=== PATIENT | male | born 1960 | race Caucasian/White ===

== ENCOUNTER 2019-09-15 21:50 | Inpatient (IN) | payer OTHER ==
[~2019-09-15] VITALS: Ht 175.3 cm; Wt 67.1 kg
[2019-09-15 21:52] VITALS: BP 153/83
[2019-09-15 22:33] LABS: ABSOLUTE NEUTROPHILS 5.1 thou/uL (1.4-8.2); BASOPHILS 0.8 % (0.0-2.0); EOSINOPHILS 1.5 % (0.0-3.0); HEMATOCRIT 41.4 % (42.0-52.0); HEMOGLOBIN 13.8 gm/dL (14.0-18.0); LYMPHOCYTES 27.4 % (24.0-44.0); MCH 28.9 pg (26.0-34.0); MCHC 33.3 g/dL (28.0-37.0); MCV 86.7 fL (80.0-100.0); PLATELET COUNT 263 thou/uL (150-400); POLYS 60.3 % (36.0-66.0); RBC 4.78 mil/uL (4.50-6.00); RDW 13.8 % (10.5-14.5); WBC 8.5 thou/uL (4.0-11.0)
[2019-09-15 22:46] LABS: CALCIUM 8.7 mg/dL (8.5-10.1); CREATININE 0.8 mg/dL (0.7-1.3); MAGNESIUM 2.2 mg/dL (1.8-2.4); POTASSIUM 3.5 mmol/L (3.5-5.1)
[2019-09-15 23:33] VITALS: BP 153/83
[2019-09-16 00:19] LABS: URINE BILIRUBIN NEGATIVE (Negative); URINE BLOOD NEGATIVE (Negative); URINE CLARITY CLEAR; URINE COLOR YELLOW; URINE GLUCOSE-RANDOM* NEGATIVE (Negative); URINE KETONES NEGATIVE (Negative); URINE LEUKOCYTES-REFLEX NEGATIVE (Negative); URINE NITRITE-REFLEX NEGATIVE (Negative); URINE PROTEIN (DIPSTICK) NEGATIVE (Negative); URINE SPECIFIC GRAVITY <= 1.005 (1.005-1.035); URINE UROBILINOGEN 0.2 E.U./dl (0.2-1.0)
[2019-09-16] MEDS ORDERED: FLOMAX0.4 MG PO (00:26)
[2019-09-16] MEDS ORDERED: DESYREL150 MG PO (00:26)
[2019-09-16] MEDS ORDERED: COLACE100 MG PO (00:27)
[2019-09-16] MEDS ORDERED: DOXYCYCLINE PO (00:27)
[2019-09-16] MEDS ORDERED: ZANTAC 150MG T150 M1 PO (00:28)
[2019-09-16] MEDS ORDERED: GLUCOPHAGE1000 MG PO (00:28)
[2019-09-16] MEDS ORDERED: NEURONTIN 300M300 M2 PO (00:28)
[2019-09-16] MEDS ORDERED: WIXELA 250-501 EACH (00:30)
[2019-09-16] MEDS ORDERED: MASOPHEN500 MG PO (00:30)
[2019-09-16] MEDS ORDERED: NYSTATIN1 EA10 TOP (00:44)
[2019-09-16] MEDS ORDERED: PROAIR HFA8.5 GM INH (00:45)
[2019-09-16] MEDS ORDERED: CALMOSEPTINE O3.5 GM (00:46)
[2019-09-16] MEDS ORDERED: CLEAR EYES NATU15 ML (00:46)
[2019-09-16] MEDS ORDERED: FLONASE 0.05%50 MCG NARES (00:47)
[2019-09-16] MEDS ORDERED: VENTOLIN HFA 1818 GM INH (00:47)
[2019-09-16] MEDS ORDERED: HYDROXYZINE PAM25 M1 PO (00:48)
[2019-09-16] MEDS ORDERED: MUCINEX DM PO (00:49)
[2019-09-16] MEDS ORDERED: LISINOPRIL PO (00:49)
[2019-09-16] MEDS ORDERED: PALIPERIDONE ER6 MG PO (00:50)
[2019-09-16] MEDS ORDERED: PREDNISONE 5 MG5 M1 PO (00:51)
[2019-09-16] MEDS ORDERED: SERTRALINE HCL100 MG PO (00:52)
[2019-09-16] MEDS ORDERED: QUETIAPINE FUMA50 MG PO (00:52)
[2019-09-16] MEDS ORDERED: SEROQUEL 50 MG50 M1 PO (00:52)
[2019-09-16] MEDS ORDERED: SIMVASTATIN80 MG PO (00:54)
[2019-09-16 02:25] VITALS: BP 163/92
[2019-09-16 03:36] VITALS: BP 149/75
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
--- NOTE | 2019-09-16 04:03 | NUR ---
PT REFUSED TO ALLOW ANY SCD DEVICE ON HIS LEGS. NOTIFIED VERIFYING SPECIALIST THAT HE NEEDS A LOVENOX OR HEPARIN INSTEAD. NO FURTHER ORDERS AT THIS TIME. VERIFYING SPECIALIST WILL LOOK INTO IT. IV FLUIDS INFUSING ORDERED.
[2019-09-16 07:41] VITALS: BP 149/90
--- NOTE | 2019-09-16 13:50 | NUR ---
Assumed pt care at 7am.Pt in bed alert and oriented but sometimes agitated and restless.Assessment completed.vss.Pulled piv out early this shift around 8am and was replaced by iv team around 11am.At 1335,medical laboratory technical officer came to draw blood and found piv on the floor pulled by pt.Dr Steward notified,order noted.Iv team will replace iv later today.Will continue to monitor.
[2019-09-16 13:53] LABS: HEMOGLOBIN 14.3 gm/dL (14.0-18.0); MCH 29.1 pg (26.0-34.0); MCHC 33.3 g/dL (28.0-37.0); MCV 87.3 fL (80.0-100.0); RBC 4.93 mil/uL (4.50-6.00); RDW 14.2 % (10.5-14.5); WBC 8.1 thou/uL (4.0-11.0)
[2019-09-16 14:02] LABS: CALCIUM 8.7 mg/dL (8.5-10.1); CREATININE 0.8 mg/dL (0.7-1.3); POTASSIUM 3.7 mmol/L (3.5-5.1)
[2019-09-16 15:23] VITALS: BP 147/88
[2019-09-16 19:19] VITALS: BP 146/80
--- NOTE | 2019-09-16 21:58 | NUR ---
PT IN ISOLATION FOR COVID. PT ALERT X 4. PT CONTINUOUSLY USING CALL LIGHT FOR BEVERAGES, FOOD, COFFEE OR HEADACHE. PT NOT ABLE TO BE VERBALLY REDIRECTED. PT HITTING CALL LIGHT REPEATEDLY EVEN WHEN STAFF IS IN THE ROOM. PROVIDER MANAGER CONTINUOUS IMPROVEMENT NOTIFIED OF BEHAVIOR AND CONTINUED HEADACHE AFTER TYELENOL. PRN ATIVAN PROVIDED. PT CONVERSATIONS HAVE BEEN FOCUSED ON WOMEN CAUSING HIM HEADACHES AND TAKING HIS MONEY, SAYING MY FINGER HURTS AND SHOWING MIDDLE FINGER, SAYING HIS NAME IS MIRI AND SINGING A SONG. PT IS NAKED IN BED WITH KNITTED SCARF ON STATED IT WAS FROM HIS FIRST . PT HAS BOOKS, KLEENEX, PACKAGES STACKED IN HIS BED THAT HE IS ALSO LAYING IN. INTERMITTENT DRY COUGH, LUNGS DIMINISHED, BS DECREASE . PT USING URINAL. COMPLIANT WITH MEDS. BLUNTED AFFECT GOOD EYE CONTACT.
--- NOTE | 2019-09-16 22:49 | NUR ---
CALLED SECURITY TO TALK WITH PT ABOUT ABUSING CALL LIGHT SYSTEM AND CRITICAL CARE CNS NOTIFIED WELL. SECURITY CAME TO TALK WITH PT. PROVIDER CALLED AND UPDATED. ONE TIME DOSE SEROQUEL ORDERED. PT OBSERVED TO BE LESS RESTLESS AND SPEECH CALM WHEN TALKING WITH MALE SECURITY. DISCUSSED PTS REQUEST FOR COFFEE WITH PROVIDER, WILL PROVIDE DECAFFINATED BEVERAGES SINCE PT ALREADY STIMULATED/RESTLESS.
--- NOTE | 2019-09-16 23:10 | NUR ---
PT CONVERSATION NOTED TO BE SLOWER. PT REPORTED THAT HE IS STARTING TO BECOME TIRED. THANKED STAFF FOR COFFEE, IT WAS DECAF. PT COMPLIANT WITH ONE TIME SEROQUEL.
--- NOTE | 2019-09-17 03:31 | NUR ---
PT HAS SLEPT THROUGHOUT THE NIGHT SINCE RECEIVING SEROQUEL.
[2019-09-17 05:10] VITALS: BP 136/82
--- NOTE | 2019-09-17 05:22 | NUR ---
PT AWAKE WALKING AROUND IN ROOM WITH CLOTHES ON AND BLANKET. PT STACKING BOOKS AND KLEENEX AND WIPES. PT DENIES HEADACHE.
[2019-09-17 06:29] LABS: ABSOLUTE NEUTROPHILS 5.2 thou/uL (1.4-8.2); BASOPHILS 0.6 % (0.0-2.0); EOSINOPHILS 3.1 % (0.0-3.0); HEMATOCRIT 42.9 % (42.0-52.0); HEMOGLOBIN 14.4 gm/dL (14.0-18.0); LYMPHOCYTES 21.8 % (24.0-44.0); MCH 29.3 pg (26.0-34.0); MCHC 33.7 g/dL (28.0-37.0); MCV 87.2 fL (80.0-100.0); MONOCYTES 10.9 % (1.0-8.0); PLATELET COUNT 268 thou/uL (150-400); POLYS 63.6 % (36.0-66.0); RBC 4.92 mil/uL (4.50-6.00); RDW 14.2 % (10.5-14.5); WBC 8.1 thou/uL (4.0-11.0)
[2019-09-17 06:42] LABS: CALCIUM 8.9 mg/dL (8.5-10.1); CREATININE 0.9 mg/dL (0.7-1.3); POTASSIUM 3.8 mmol/L (3.5-5.1)
[2019-09-17 07:59] VITALS: BP 144/87
--- NOTE | 2019-09-17 11:17 | NUR ---
Assumed pt care at 7am.Pt in bed half naked resting.Rn encouraged covering with hospital gown before assessment but pt refused and said he was hot. Assessment completed.vss.pt ate breakfast and took all po meds scheduled for this am including tylenol for headache.Dr Steward here,order noted.New piv placed by iv team later this am and zosyn ivpb was given.Pt was restless and agitated getting out of bed and removing hospital gown after replacing three times.Haldol ivp given.Will continue to monitor.
[2019-09-17 15:21] VITALS: BP 111/71
[2019-09-17 19:27] VITALS: BP 138/90
--- NOTE | 2019-09-17 20:46 | NUR ---
PT RESTLESS AND WALKING WTIH STEADY GAIT IN ROOOM NAKED WITH BLANKET WRAPPED AROUND HIM. PT USING URINAL TO URINATE, WATER ALL OVER BATHROOM FLOOR INCLUDING PAPER SACK BY TOILET. PT HAS ALL ROOM ITEMS BOOKS, WIPES ETC STACKED ON BED. PT REQUESTING SODA AND COFFEE, DECAF PRODUCTS PROVIDED. NO COUGH OBSERVED. PT COMPLIANT WITH FSBS REFUSED INSULIN. PT COMPLIANT WTIH HS MEDS. PT NOTIFIED HE DOES NOT HAVE VIRUS AND NO LONGER IN ISOLATION. NEUROLOGICAL PHYSIOTHERAPIST AND PROVIDER NOTIFIED. PT REDIRECTED NOT USE INAPPROPRIATELY USE NURSES CALL LIGHT. PT VERBALIZED HE IS WANTING TO GO HOME TO HIS .
--- NOTE | 2019-09-17 20:59 | NUR ---
PT PULLED OUT PERIPHERAL IV, PER REPORT AND DR INSTRUCTIONS, WILL NOT REPLACE.
--- NOTE | 2019-09-17 21:12 | NUR ---
PT PACING IN ROOM TAKING OFF CLOTHES, REPEATEDLY HITTING NURSE CALL BUTTON EVEN AFTER REDIRECTION, GOING TO ROOM DOOR DEMANDING SODA AND COFFEE, DEMANDING MORE MEDICATION TOWARDS MORE THAN ONE NURSE. CALLING NURSE FREDDIECH. STATING HE HAS BEEN HERE FOR 4 DAYS AND HE IS READY TO GO HOME RIGHT NOW. IM PRN FOR AGITATION PROVIDED.
--- NOTE | 2019-09-17 22:28 | NUR ---
PT STATED HE DOES NOT HAVE A HEART OR LUNGS, THAT HE HAS 3 WIVES AND A GIRLFRIEND. CALLED NURSE A BITCH AND STATE HE WANTS TO LEAVE AND HE DOESNT WANT TO WAIT UNTIL THE AM.
--- NOTE | 2019-09-17 22:39 | NUR ---
Transfer report called. Room 434. Pt verbalized understanding, w/c has all belongings.
--- NOTE | 2019-09-18 01:13 | NUR ---
PT WAS TRANSFERRED TO THE UNIT FROM IN A STABLE CONDITION.PT ALERT AND CALM WHEN HE GOT TO THE UNIT.PT IS A COVID 19 RULE OUT.PT STILL WITH COUGH,NON PRODUCTIVE.PT RESTING IN BED AT THIS TIME.FALL PRECAUTIONS IN PLACE,CALL LIGHT WITHIN REACH.
[2019-09-18 01:14] VITALS: BP 118/59
[2019-09-18 03:10] VITALS: BP 136/73
[2019-09-18 07:33] VITALS: BP 139/79
[2019-09-18] MEDS ORDERED: MUCINEX600 MG PO (10:53)
[2019-09-18] MEDS ORDERED: AUGMENTIN 875-1 EACH PO (10:54)
--- NOTE | 2019-09-18 11:53 | NUR ---
Assumed pt care this am, pt is only alert to self and talks about having a then a girlfriend and a child where he came from. Pt is confused and very impulsive but steady on his feat when assisted. Constantly wants coffee and would get upset when told he has had too much and needs to wait. Pt is able to urinate using the urinal and is able to go to the toilet, though pt stated he is not able to urinate and have a bowel movement, as validated by the night nurse this is not true. Pt has been voiding, awaiting a bm.
--- NOTE | 2019-09-18 12:46 | NUR ---
PT ADMITTTED RELATED TO PNEUMONIA, AGRESSIVE BEHAVIOR, R/O COVID 19. CM REVIEWED CHART AND SPOKE WITH CARE TEAM. CM SPOKE WITH NURSE AND SHE INDICATED THAT PT IS CONFUSED. CM ATTEMPTED PC TO PT'S SISTER CHANDRA ESPINO NUMBER LISTED IS NON WORKING. CIARAN CALLED AND SPOKE WITH KRISTAChayo MACIAS AT [facility] WHICH IS LICSENSED A RESIDENTIAL CARE PLUS HOME. SHE INDICATED THAT PT HAD BEEN INDEPENDENT WITH GAIT AND ADLS FIELD AUDITOR. SHE STATED THAT PT'S BOTHER HAD TAKEN HIM OUT AT TIMES BUT THAT OTHERWISE PT HADN'T LEFT FACILITY. SHE STATED THAT PT HAD BURNT HIMSELF WITH [employer]IG[employer]TE FIELD AUDITOR AND HAD BEEN SENT TO [facility]. SHE INDICATED THAT THE NUMBER THEY HAVE ON FILE FOR SISTER IS CHANDRA ESPINO SISTER . CM CALLED AND [facility] ISN'T SET UP. SHE INDICATED THAT THEY WOULD HAVE TO ACCEPT PT BACK ONCE MEDICALLY STABLE BUT THAT THEY DON'T FEEL THEY ARE THE APPROPRIATE LEVEL OF CARE FOR PT DUE TO BEHAVIORS. CARE TEAM INDICATED THAT PT IS TO DC THIS DAY TO [facility]. KRISTA AT [facility] NOTIFIED.
== END 2019-09-18 16:02 | DRG 194 ==
LOC: ER 21:50 → EROBS 23:19 → 3W 09-16 01:59 → 4S 09-17 23:24
PROVIDERS: Emergency Medicine; Hospitalist; Nurse Practitioner Family; ADMIT Hospitalist
DX: J18.9 Pneumonia, unspecified organism (principal); F03.91 Unspecified dementia, unspecified severity, with behavioral disturbance; F03.90 Unspecified dementia, unspecified severity, without behavioral disturbance, psychotic disturbance, mood disturbance, and anxiety; I10 Essential (primary) hypertension; E78.5 Hyperlipidemia, unspecified; E11.9 Type 2 diabetes mellitus without complications; F32.9 Major depressive disorder, single episode, unspecified; K21.9 Gastro-esophageal reflux disease without esophagitis; N40.0 Benign prostatic hyperplasia without lower urinary tract symptoms; G47.00 Insomnia, unspecified; F17.210 Nicotine dependence, cigarettes, uncomplicated; F20.9 Schizophrenia, unspecified; Z79.899 Other long term (current) drug therapy; Z23 Encounter for immunization
CPT/HCPCS: 10080; 10195

== ENCOUNTER 2019-09-18 11:42 | Inpatient (IN) | payer OTHER ==
[~2019-09-18] VITALS: Ht 172.7 cm; Wt 65.2 kg
[~2019-09-18 11:42] MED LIST: AUGMENTIN 875-1 EACH PO; CALMOSEPTINE O3.5 GM; CLEAR EYES NATU15 ML; COLACE100 MG PO; DESYREL150 MG PO; DOXYCYCLINE PO; FLOMAX0.4 MG PO; FLONASE 0.05%50 MCG NARES; GLUCOPHAGE1000 MG PO; HYDROXYZINE PAM25 M1 PO; LISINOPRIL PO; MASOPHEN500 MG PO; MUCINEX DM PO; MUCINEX600 MG PO; NEURONTIN 300M300 M2 PO; NYSTATIN1 EA10 TOP; PALIPERIDONE ER6 MG PO; PREDNISONE 5 MG5 M1 PO; PROAIR HFA8.5 GM INH; QUETIAPINE FUMA50 MG PO; SEROQUEL 50 MG50 M1 PO; SERTRALINE HCL100 MG PO; SIMVASTATIN80 MG PO; VENTOLIN HFA 1818 GM INH; WIXELA 250-501 EACH; ZANTAC 150MG T150 M1 PO
[2019-09-18 16:18] VITALS: BP 132/83
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
[2019-09-18 19:48] VITALS: BP 138/83
--- NOTE | 2019-09-19 00:39 | NUR ---
Assumed care of patient this pm shift. Patient sitting in the mileu with peers. Patient is oriented to self and knows he is in a hospital facility. Patient denies si/hi. Patient states that he has an upset stomach. Patient states that he needs breathing treatments. Patient is forgetful. Patients assessment shows clear breath sounds, active bowel sounds, and s1 s2 heard with auscultation. Patient is not showing any signs of aggressive behaviors at this time. We will continue to monitor.
--- NOTE | 2019-09-19 06:00 | NUR ---
Patient is very irritable and called the staff development manager a "stupid nigger" when RN explained to patient that he is needing pain medicine. Patient stated that his testicles hurt. When asked how long, patient stated since he was a child. RN stated to patient that the doctor orders medications, not the nurse. Patient stated that "you take orders from me, not no fucking doctor." RN discouraged this type of verbal interaction and explained that this is not the way to have positive interactions. We will continue to monitor.
--- NOTE | 2019-09-19 09:24 | NUR ---
Assess due RD consult received for diabetes. Admitted from medical floor to [facility], aggressive behaviors, dementia. Hx DM. BG are in excellent control and on carb control diet order. Had 2 wts 8 lb difference in 2 days. Intake 95-100% meals so far. Continue to follow wts 1x weekly and further intake trends. Otherwise would consider low nutrition risk.
[2019-09-19 09:28] VITALS: BP 135/91
--- NOTE | 2019-09-19 10:14 | NUR ---
PATIENT NOTED WITH NO SHIRT ON. FIRMWARE ARCHITECT ASKS PTIENT TO PUT SHIRT ON AND PT STATES HIS WAS DIRTY. CLEAN SHIRT GIVEN AND PATIENT GOES TO ROOM AND PUTS SHIRT AND SWEATER ON.
--- NOTE | 2019-09-19 10:21 | NUR ---
Assumed pt care at 0700. Pt walking around unit, stating, "I need to go home to my and baby." Pt sat in dayroom for meals. Was given scheduled meals and tolerated well, without difficulty. Pt continues to take off shirt while sitting in dayroom and has to be redirected frequently. Pt reported pain in groin area of 6/10 and states, "I've had it since I was a kid." Pt given PRN Tylenol with minimal relief. Pt continues to be rude and disrespectful to staff, calling staff "whores" and "stupid". Pt has been easily redirected but continues with rude behaviors. Will continue to monitor.
--- NOTE | 2019-09-19 11:51 | NUR ---
MAURILIO contacted [facility] and spoke with Ana Lilia (Admin. Assist) who said pt has been sent out now 3 times to a hospital in the month of August; twice to [facility] and once to [facility]. He was transferred to [facility] from [facility]. She said he has lived with them since 11/2018 and lived at another facility in [facility] for 7 years. She said he recently has been threatening residents and staff that he would kill them. He is also experiencing delusions and auditory/visual hallucinations. She said his sister Matilda is DPOA and she will fax that document to sr. social media & mobile manager. She gave her sisters number of [phone]. MAURILIO contacted Matilda. No answer. zakia rochag. MAURILIO team will continue to follow pt during his stay on the unit.
--- NOTE | 2019-09-19 14:49 | NUR ---
1400 ASSUMED CARE OF PATIENT. MEDICATION GIVEN WHOLE WITHOUT DIFFICULTY. PATIENT CONTINUES TO WALK AROUND WITH BLANKETS DRAPPED AROUND HIM. PATIENT IS COOPERATIVE AT THIS TIME. WILL CONTINUE TO OBSERVE
--- NOTE | 2019-09-19 15:29 | NUR ---
PATIENT C/O SOB THEN RETURNS TO DAYROOM AND CONTINUES TO TALK TO SELF. NO DISTRESS NOTED. NURSE ANESTHETIST ASKS PATIENT TO GO TO ROOM AND PATIENT FOLLOWS. LUNG SOUNDS DIMINISHED WITH WHEEZES NOTED. PATIENT NOT STRUGLING. AEROSOL TX SCHEDULED FOR 5PM, WILL CONTINUE TO OBSERVE. AFTER OINTMENT APPLIED TO OPEN AREAS OF ANKLE AND HANDS, PATIENT LEAVES ROOM AND BACK TO DAYROOM. DENIES NEEDS AT THIS TIME.
--- NOTE | 2019-09-19 17:07 | NUR ---
SW completed a check in instead of group with pt's due to COVID-19 guidelines Pt wanted SW to paint his nails. SW assisted pt in proper handwashing techniques, and then sat at a table with him and helped him paint his nails. He laughed a lot with SW. He said when he was younger he got his fingers painted a lot. SW attempted to encourage him to sit at the table for an additional 5 min. but he was not able to complete SW request as he wanted to wander.
--- NOTE | 2019-09-19 17:30 | NUR ---
PATIENT STUB MIDDLE TOE TO RIGHT FOOT. PATIENT STATES "I THINK ITS BROKEN". PATIENT AMBULATING WITHOUT LIMPING. SLIGHT BRUISING NOTED. WILL CONTINUE TO OBSERVE PATIENT. DENIES OTHER NEEDS AT THIS TIME. PATIENT CALM SITTING AT TABLE WATCHING TV.
--- NOTE | 2019-09-19 17:35 | NUR ---
PT. HAS BEEN IN THE DINING ROOM SEVERAL TIMES TODAY DISROBING. HE WAS TOLD TO PUT HIS CLOTHES ON OR HE WOULD HAVE TO BE IN HIS ROOM. HE DID SO, THE TOOK SHIRT OFF AGAIN. AGAIN HE WAS ASKED TO GO TO HIS ROOM AND DRESS HIMSELF. HE DID SO AGAIN. AT SUPPER HE GRABBED HIS FOOD AND WAS WALKING AROUND WITH IT. HE WAS TOLD TO SIT DOWN TO EAT. HE RAISED HIS MIDDLE FINGER AT THIS RN. HE DID, HOWEVER, DRESS HIMSELF.
[2019-09-19 19:34] VITALS: BP 106/60
[2019-09-19 22:00] VITALS: BP 106/60
--- NOTE | 2019-09-19 23:38 | NUR ---
Assumed care of patient this pm shift. Patient irritable and rude. Patient states that he is going home. Patient requested muscle relaxers. Patients affect blunted. Patient rambles when he speaks. Patient is not showing any aggressive behaviors at this time. Patients assessment shows wheezes, bowel sounds present, s1 s2 heard with auscultation. Patient is continent of bowel and bladder. Patient takes medications whole. Patient could be med seeking. We will continue to monitor.
[2019-09-20 09:25] VITALS: BP 133/78
--- NOTE | 2019-09-20 12:45 | NUR ---
MAURILIO spoke with Matilda Mckeon who gave SW hx on pt. She confirmed what pt's nursing staff said and that is pt's behaviors began approx 3 months ago. She said he is not normally aggressive verbally, and does not attempt to hurt people. SW asked if pt has ever been diagnosed with dementia. Matilda said his former residential called [facility] used the term "Alzheimer's" but he has not been officially tested for such. In tx team it was discussed that pt will undergo a neuropysch exam. SW team will continue to follow pt during his stay on this unit.
--- NOTE | 2019-09-20 16:06 | NUR ---
Assumed care at 0700. Moving around dayroom in AM, getting several cups of coffee, changing clothes, putting clothes on in multiple layers, taking them off. He was being impolite to peers and staff, name calling, cursing for no provocation. Several times he was taking off his shirts (3). staff had difficult time getting him to wear any shirts. He removed his nonskid socks, many times he would not wear any socks. At 1038 he was given IM of Ziprasidone 15 mg. Later he stated his thoughts had been racing, he had small amounts of drooling. He later stated his thoughts had slowed down some. His three sores:1) left posterior left leg, 2) left hand, 3) left hand dressed with Rx'd antibiotic ointment and dressed with gauze=reddened around the edges. Having delusions about staff. At times gives appearance of having auditory hallucinations, pausing as if hearing something being said to him when no one is speaking to him. He has improved some though has still displayed taking shirt and socks off, slowed down unacceptable talk.
--- NOTE | 2019-09-20 18:36 | NUR ---
Patient refusing to keep shirt and socks on and was using repeated expletives in speech toward staff and patients off and on since 1729. He was assessed with orders written by Dr. Mcdermott. IM Chlorpromazine 7.5 mg given 1744 right deltoid. Plan is if he is not compliant with keeping shirt on and keeping language appropriate, he is to stay in his room. Further orders issued by Dr. Sexton related to upper abdominal breathing. RT was notified of Kayleen ORTEZ to be done Stat. They will be here MARIA M-were in shift change. He took shirt off, called nurse inappropriate names, was led to his room to wait for respiratory treatment.
[2019-09-20 19:54] VITALS: BP 128/77; BP 133/78
--- NOTE | 2019-09-20 23:18 | NUR ---
Pt alert and oriented x2. Pt was ambulating [address] at time of assessment. Pt did not have any shirt on at time and refused to have once, saying that he is hot. Pt was calm and cooperative with assessment. Pt voiced having anxiety and depression. Pt denies SI/HI/AH/VH. Pt took meds whole. Wheezes noted. Some huffing and puffing breathing noted c/o COPD. Pt now in bed sleeping. Will continue to monitor.
--- NOTE | 2019-09-20 23:36 | H ---
[facility] [address] HISTORY AND PHYSICAL Name: MARY MELO Room #: 523A-A ADM IN M.R.#: [id number] Admission: 09/18/19 Attend Phys: Bryan Sexton DO Discharge: Date of : 56 Report #: [id number] THIS REPORT FOR: cc: LAURIE - No family physician/PCP FAM - No family physician/PCP Bryan Sexton DO ~ CC: Bryan SULLIVAN physician/PCP DATE OF SERVICE: 09/18/2019 INPATIENT PSYCHIATRIC EVALUATION Date of admission to geriatric psychiatry to 09/18/2019. The patient is discharged from the medical floor and now admitted to us. REASON FOR ADMISSION: Psychosis. SOURCES OF INFORMATION: Interview with the patient, medical Emergency Room records. HISTORY OF PRESENT ILLNESS: A 59-year-old male who initially presented to the [facility]. The patient was at a nursing facility, not sure of the name of him where he was allegedly aggressive towards staff as well as at [facility]. Early in the day at the nursing facility, he was smoking cigarette. When staff asked him to come inside, he put the cigarette out on his hand and left foot. He has been picking at these wounds. He had no complaints in our ER and also a series of events happened where he began coughing copiously on the way to our Emergency Room for COVID-19 screening and while in the ER, he was found to have left lower lobe infiltrates; therefore, he was admitted medically for treatment of pneumonia and COVID-19 rule out. HOME MEDICATIONS: Noted to be tamsulosin, trazodone, metformin, ranitidine, gabapentin, Flonase, albuterol, lisinopril, Invega, prednisone, sertraline, simvastatin. These were thankfully reduced during his medical hospitalization. SOCIAL HISTORY: The patient is a poor historian and he is a smoker of tobacco. His alcohol and recreational drug use history is not obtained at this time. His chest x-ray as stated showed hazy infiltrate predominantly lower lobe. PAST MEDICAL HISTORY: Regarding his past medical history includes diabetes mellitus type 2, benign prostatic hypertrophy, hyperlipidemia and GERD. PSYCHIATRIC HISTORY: Schizophrenia, depression. [facility] [address] [place] [address] HISTORY AND PHYSICAL Name: MARY MELO Room #: 523A-A ADM IN [facility]#: [id number] Admission: 09/18/19 Attend Phys: Bryan Sexton, Discharge: Date of : 56 Report #: [id number] FAMILY HISTORY: Not able to be obtained. Also, he says he is getting . He just had a baby. He states his sister and brother are his people involved in his care. LABORATORY DATA: Notable laboratories. Most recent CBC: White count 8.1, H and H 14.4 and 42.9, platelets 268. Chemistry: Sodium 135, BUN 6, glucose 117. Lactic acid 1.4 on the , calcium 8.9, magnesium 2.2, procalcitonin less than 0.05. Urinalysis was negative. Serology and influenza A and B were negative. Coronavirus was not detected. MRSA was negative. There is a strep pneumonia antigen. Legionella antigen was negative. Strep pneumonia antigen was negative. PHYSICAL EXAMINATION: VITAL SIGNS: Today, temperature 36.6, pulse 92, respirations 18, BP 132/83, O2 sat 98%. MUSCULOSKELETAL: Normal gait. Kyphotic. Unkempt. MENTAL STATUS EXAMINATION: This is a well-developed, unkempt male, appearing at least stated age. Attention limited. Concentration limited. Speech slow, normal volume. Thought process linear and limited. Thought content focussed somatically. No psychomotor agitation. No psychomotor retardation. Mood is okay with congruent, euthymic. He denied SI, HI. Denied hopelessness, helplessness. Denied auditory, visual or tactile hallucination. Memory known to be impaired. Insight limited. Judgment limited. The patient was oriented to person, the fact that he was in the hospital and not the name of the hospital. He did not know the day of the week, but he knew the month and the year. Fund of knowledge is diminished as stated above. FORMULATION: A 59-year-old male sent from jail for self-injurious behavior and inability to redirect. 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 PLAN: Evaluate, stabilize, obtain collateral. I have put him on a Seroquel regimen of 175 mg at bedtime, 50 mg in afternoon and 25 mg in the morning. This is slightly higher than we had him on inpatient. We had a lot of behavioral problems on the Inpatient Medical Unit. ESTIMATED LENGTH OF STAY: 10-14 days. STRENGTHS: He is relatively young. WEAKNESSES: He has poor social support. [facility] [address] [place] [address] HISTORY AND PHYSICAL Name: MARY MELO Room #: 523A-A ADM IN .R.#: [id number] Admission: 09/18/19 Attend Phys: Bryan Sexton DO Discharge: Date of : 56 Report #: [id number] ADDITIONAL HISTORY: He resides at the [facility]. At [facility] too, he allegedly was positive for amphetamines, methamphetamines and marijuana. In the coming days, I would like to get a hold of his family. Also, his other inpatient medications, I have ordered for rather first inpatient psychiatric stay besides the Seroquel regimen above, tamsulosin 0.8 mg p.o. daily, Flonase 2 sprays each nostril daily, gabapentin 300 mg t.i.d., atorvastatin 20 mg at bedtime, amoxicillin-clavulanate 875 mg p.o. b.i.d. x 7 days, Pulmicort 0.25 mg nebulizer b.i.d., albuterol 2.5 mg q.4 p.r.n. and metformin 1000 mg p.o. b.i.d. with meals. Time spent on interview, review of records and coordination of care for this patient is in the 60-minute range. <ELECTRONICALLY SIGNED> By: Bryan Sexton DO 09/20/19 [id number] Bryan Sexton DO /nt
--- NOTE | 2019-09-21 00:35 | NUR ---
INTERFACE ANALYST ACTIVATED FOR DCREASED LOC. VS STABLE AND PT RESISTANT TO ASSESSMENTS. NO UNILATERAL DEFICITS NOTED. HOME ATTENDANT ROUNDED ON PT WITH NEW LAB ORDERS ENTERED. SEE RAPID RESPONSE DOCUMENTATION FOR FURTHER DETAILS.
[2019-09-21 01:12] LABS: HEMOGLOBIN 14.1 gm/dL (14.0-18.0); MCHC 32.7 g/dL (28.0-37.0); MCV 88.6 fL (80.0-100.0); RBC 4.85 mil/uL (4.50-6.00); WBC 10.1 thou/uL (4.0-11.0)
[2019-09-21 01:22] LABS: ANION GAP 7 mmol/L (7-16); BUN 17 mg/dL (7-18); CALCIUM 9.3 mg/dL (8.5-10.1); CHLORIDE 102 mmol/L (98-107); CO2 29 mmol/L (21-32); GLUCOSE 102 mg/dL (74-106); SODIUM 138 mmol/L (136-145); TROPONIN-I <0.06 ng/mL (<0.06)
[2019-09-21 01:29] LABS: POTASSIUM 5.7 mmol/L (3.5-5.1)
--- NOTE | 2019-09-21 08:21 | NUR ---
0700 ASSUMED CARE OF PATIENT. PATIENT UP AMBULATING IN DAYROOM AND ADAM WITHOUT A SHIRT. WHEN DIRECTOR TRADE ASKS PATIENT TO PUT SHIRT ON PATIENT GETS AGGRESIVE AND STARTS TO USE FOUL LANGUAGE AGAINST STAFF. PATIENTS STARTS TO PUT SHIRT ON REQUESTED BY STAFF PRIOR TO EATING BREAKFAST THEN TAKES IT OF AGAIN. PATIENT IS ANGRY AND WILL NOT COMPLY WITH WHAT IS ASKED OF HIM. PATIENT WALKS TO ROOM UPSET. WILL CONTINUE TO OBSERVE.
[2019-09-21 09:29] VITALS: BP 106/61
--- NOTE | 2019-09-21 09:30 | NUR ---
PATIENT TO HIS ROOM WITH DR BANSAL AND . PATIENT REFUSES TO COMPLY AND LEAVE CLOTHING ON. PATIENT WALKED TO QUIET ROOM BY AND . PATIENT TAKES MEDICATION WITHOUT INCIDENT. ORDER FOR ONE ON ONE WHILE IN QUIET ROOM . PATIENT BAGING ON WALL AND WINDOW WHILE IN ROOM. MAURILIO EHNNESSY ENTERS IN ROOM TO TALK TO PATIENT AT THIS TIME. WILL CONTINUE TO OBSERVE FOR SAFETY.
--- NOTE | 2019-09-21 09:36 | NUR ---
PATIENT IN QUET ROON SITTING ON BED AND CRYING AT THIS TIME. ATTEMPTED TO TALK TO BUT REFUSES TO TALK. SW CAME TO AN AGREEMENT WITH PATIENT ABOUT LEAVING CLOTHES ON. WILL CONTINUE TO OBSERVE. ROLL LINE OPERATOR/WC ILIANA Prasad AT DOOR FOR ONE TO ONE.
--- NOTE | 2019-09-21 10:43 | NUR ---
PATIENT SITTING IN DAYROOM WITH NO SHIRT AT THIS TIME. MAURILIO HENNESSY SUPPLIED PATIENT WITH A COUPLE OF SHIRTS. PATIENT PUT TANK TOP ON. PATIENT IS CALM AT THIS TIME. WILL CONTINUE TO MONITOR
--- NOTE | 2019-09-21 10:49 | NUR ---
MAURILIO saw that pt was in the quiet room, and after consulting with nursing found out it was because he will not comply with the dresscode of keeping his shirt on in common areas. MAURILIO went into the quiet room and spoke with pt. He began crying and saying that he doesn't understand why he behaves the way he does. MAURILIO asked him how she can help. At first he said "I want to talk to my ." Then he said "I want to talk to my sister." MAURILIO told him that if he can keep his shirt on for a little bit she will bring him to her office to call his sister. MAURILIO brought pt to her office and called Matilda. Pt spoke with Matilda for a few min. After they hung up, pt began to cry again. He also took his shirt off in MAURILIO's office. MAURILIO then asked how she can help him keep his shirt on. Pt responded that he wanted a tank top. After consulting with medical staff MAURILIO found that pt is not a fall risk. MAURILIO went to ED closet and retrieved 2 tank tops for pt. Pt chose the white one. He then said to MAURILIO " I feel better now." MAURILIO team will continue to follow pt during his stay on this unit.
--- NOTE | 2019-09-21 13:09 | NUR ---
PATIENT AMBULATING IN DAYROOM AND HALLWAY. PATIENT SMILING AND TALKING WITH OTHERS WELL. PATIENT CONTINUES TO WEAR TANK TOPS PROVIDED TO HIM. PATIENT IS CALM AT THIS TIME.
--- NOTE | 2019-09-21 14:33 | NUR ---
PATIENT IN DAYROOM CUSSING AND STATING "FUCK EVERYONE, I JUST WANT TO LEAVE THIS FUCKING PLACE AND IF THEY DON'T LET ME GO I WILL KILL EVERYONE". PATIENT REMOVES SHIRT, DR CRUZ TALKS TO PATIENT AND PATIENT REFUSES TO APPLY SHIRT. PATIENT TO ROOM WITH GATE TENDER, TOPICAL OINTMENT APPLIED TO OPEN SORES. PATIENT APPLIED SHIRT WITH ASSISTANCE FROM WRITTER. PATIENT AMBULATING IN HALLWAY WITHOUT WALKER. PATIENT DOES NOT HAVE YELLOW SOCK OR NAME BAND ON HE REFUSES TO LEAVE ON. PATIENT REFUSES TO USE WALKER WHILE AMBULATING. WILL CONTINUE TO OBSERVE PATIENT FOR BEHAVIORS.
--- NOTE | 2019-09-21 17:58 | NUR ---
PATIENT NOTED WITH INCREASED AGITATION. PATIENT IN ADAM YELLING NIGER TO SOIL EXPERT AND CURSING AT EVERYONE USING WORDS LIKE FUNKING AND MOTHER FUCKER. PATIENT ATTEMPTING TO ELOPE THROUGH EXIT DOORS DEMANDING TO GO OUT TO SMOKE. MULTIPLE ATTEMPTS TO TALK WITH PATIENT WITH NO SUCCESS TO CALM PATIENT. PATIENT CONTINUES TO YELL AND CURSE. CARBON BRUSHES ASSEMBLER ASKS PATIENT IF HE IS READY FOR A SHOT, PATIENT RESPONDS WITH "YES". CARBON BRUSHES ASSEMBLER ASKS PATIENT TO GO TO ROOM AND CARBON BRUSHES ASSEMBLER WILL BE THERE SHORTLY. WHEN CARBON BRUSHES ASSEMBLER ENTERS ROOM PATIENT BAWLING LAYING ON GROUND. WHEN ASKED WHY ON GROUND PATIENT STATES "I WANT TO LAY HERE". PATIENT ASKS TO STAY LAYING DURING IM SHOT. ZYPREXA 7.5 MG IM GIVEN TO LEFT BUTTOCKS. INJECTION GIVEN WITHOUT INCIDENT. PATIENT STATES "I WILL LAY HERE FOR A BIT". PATIENT DENIES OTHER NEEDS. WILL CONYINUE TO OBSERVE.
[2019-09-21 19:45] VITALS: BP 145/80
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
[2019-09-22 11:02] LABS: CREATININE 0.9 mg/dL (0.7-1.3); POTASSIUM 4.1 mmol/L (3.5-5.1)
--- NOTE | 2019-09-22 14:47 | NUR ---
Pt was very weepy in common area so MAURILIO brought pt into her office and called Matilda. Pt calmed down. MAURILIO provided Matilda an update on pt and informed her that he will undergo a neuropsch exam this weekend. Afterwards pt said he wanted to smoke and MAURILIO again reminded him he cannot do that at the hospital. SW helped him find his t-shirt. SW team will continue to follow pt during his stay on this unit.
--- NOTE | 2019-09-22 16:30 | NUR ---
SW did check in with patients instead of groups due to COVID-19 guidelines. Pt was walking the halls saying obscenities with his 1-1 during rounds. He did not appear upset and he had 2 shirts on.
--- NOTE | 2019-09-22 17:41 | NUR ---
Up ambulating with regular, steady gait most of day. Inappropriate language and some inappropriate behavior t/o day but was redirectable. Purposefully poured water on floor. Repeatedly asking for shot in late afternoon. Alert and orientated X3. Denies SI/HI. States shoulders hurt, tylenol given for pain. Did not have any s/o distress at that time. Breath sounds clear t/o. Regular HR auscultated. Color pink with brisk capillary refill and palpable peripheral pulses. Independent with voiding. Active bowel sounds over soft, rounded abdomen. No BM today. Compliant with meds today. Under 1:1 observation with DRIVER LICENSE TECHNICIAN today. Increased ambulation this evening. Talking about fishing. Wants to go outside to smoke. No s/o distress.
[2019-09-22 18:04] VITALS: BP 134/70
[2019-09-22 19:42] VITALS: BP 118/74
--- NOTE | 2019-09-23 00:19 | NUR ---
Care assumed of patient at 1915: Patient pacing about the dayroom and halls at start of shift. Patient remains 1:1 while awake. Patient intrusive with staff and peers at times. Requires constant re-direction. Patient collecting any belongings he sees such as paper, linens, Kleenex, pencils and carries them about the unit. Patient impulsive and will throw them across the room, threw items over the glass into the nurses station. Patient did get a cup of water and threw it across the room and onto the floor, then started to laugh. Patient having rambling speech. Patient observed spitting on Kleenex or his hands and rubbing open sores on his body. Required re-direction and education on healing process of his skin. Patient ate 100% HS snack. Took HS medication without difficulty.
[2019-09-23 00:23] VITALS: BP 161/92
[2019-09-23 01:23] VITALS: BP 147/88
== END 2019-09-23 03:32 | disposition short-term general hospital (02) | DRG 884 ==
LOC: SBH
PROVIDERS: Hospitalist; Nurse Practitioner Family; ADMIT Psychiatry & Neurology Psychiatry
DX: F03.91 Unspecified dementia, unspecified severity, with behavioral disturbance (principal); J18.9 Pneumonia, unspecified organism; E11.9 Type 2 diabetes mellitus without complications; N40.0 Benign prostatic hyperplasia without lower urinary tract symptoms; E78.5 Hyperlipidemia, unspecified; K21.9 Gastro-esophageal reflux disease without esophagitis; F32.9 Major depressive disorder, single episode, unspecified; F20.9 Schizophrenia, unspecified; J44.9 Chronic obstructive pulmonary disease, unspecified; I10 Essential (primary) hypertension; J84.10 Pulmonary fibrosis, unspecified; Z79.2 Long term (current) use of antibiotics; Z87.01 Personal history of pneumonia (recurrent); Z79.84 Long term (current) use of oral hypoglycemic drugs; Z79.891 Long term (current) use of opiate analgesic; Z79.899 Other long term (current) drug therapy; Z23 Encounter for immunization
CPT/HCPCS: 10880

== ENCOUNTER 2019-09-23 02:42 | Inpatient (IN) | payer OTHER | END 2019-09-28 13:00 | DRG 470 | LOC: 4S 02:42 → 2N 14:17 → 4S 09-26 22:14 | PROVIDERS: ADMIT Hospitalist | PROC: 0SRR019 Replacement of Right Hip Joint, Femoral Surface with Metal Synthetic Substitute, Cemented, Open Approach (ICD-10-PCS; principal; 2019-09-23) | DX: S72.001A Fracture of unspecified part of neck of right femur, initial encounter for closed fracture (principal); F03.91 Unspecified dementia, unspecified severity, with behavioral disturbance; F01.51 Vascular dementia, unspecified severity, with behavioral disturbance; F20.9 Schizophrenia, unspecified; E11.9 Type 2 diabetes mellitus without complications; I10 Essential (primary) hypertension; G43.909 Migraine, unspecified, not intractable, without status migrainosus; F32.9 Major depressive disorder, single episode, unspecified; R41.9 Unspecified symptoms and signs involving cognitive functions and awareness; E78.5 Hyperlipidemia, unspecified; Z03.818 Encounter for observation for suspected exposure to other biological agents ruled out; W18.39XA Other fall on same level, initial encounter; Y93.89 Activity, other specified; Y92.89 Other specified places as the place of occurrence of the external cause; Y99.8 Other external cause status ==

== ENCOUNTER 2019-09-27 14:05 | Inpatient (IN) | payer OTHER ==
[~2019-09-27] VITALS: Ht 172.7 cm; Wt 72.6 kg
--- NOTE | ~2019-09-27 | D ---
[facility] [place] [address] DISCHARGE SUMMARY Name: LORIEMARY Yulissa Room #: 514-P [facility] IN M.R.#: [id number] Admission: 09/28/19 Attend Phys: New Mena MD Discharge: 10/06/19 Date of : 56 Report #: [id number] THIS REPORT FOR: cc: LAURIE - Hina family physician/PCP LAURIE - No family physician/PCP New Mena MD ~ THIS REPORT FOR: //name// CC: New SULL[facility]AN physician/PCP DATE OF SERVICE: 10/06/2019 ADDENDUM Please see the discharge summary as documented. The patient did miss some therapy while on the rehab [facility] on , 10/05/2019, secondary to some agitation. By: [id number] New Mena MD /PMT
[2019-09-27] MEDS ORDERED: IPRAT-ALBUT 0.5-3 ML INH (14:51)
[2019-09-27] MEDS ORDERED: OLANZAPINE ODT5 MG PO (14:51)
[2019-09-27] MEDS ORDERED: PULMICORT0.25 MG/3 INH (14:51)
[2019-09-27] MEDS ORDERED: NICOTINE1 EAC2 TRANSDERM (14:51)
[2019-09-27] MEDS ORDERED: POLYSPORIN OI28.3 GM TOP (14:51)
[2019-09-27] MEDS ORDERED: TEGRETOL XR100 MG PO (14:51)
[2019-09-27] MEDS ORDERED: OLANZAPINE10 M2 IM (14:51)
[2019-09-27] MEDS ORDERED: NORCO 5-325 TA1 EAC1 PO (14:51)
[2019-09-27] MEDS ORDERED: SEROQUEL 100 M100 M1 PO (14:51)
[2019-09-27] MEDS ORDERED: ENOXAPARIN40 MG/0.1 SUBQ (14:51)
[2019-09-27] MEDS ORDERED: RISPERDAL2 MG PO (14:51)
[2019-09-28] MEDS ORDERED: DOXYCYCLINE HYC50 MG PO (12:56)
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
--- NOTE | 2019-09-28 15:17 | NUR ---
ASSUMED CARES AT 0700. PT AWAKE, ORIENTED TO PERSON AND PLACE. DENIES PAIN AT THIS TIME. TEMP AND HR ELEVATED. PT RESTLESS MOVING FROM CHAIR TO BED, TAPPING. CURSING ON THE PHONE AND AT THE PHONE WHILE TRYING TO CALL HIS "". INCISION RIGHT HIP REMAINS DRY AND INTACT, WBAT ON RLE. HAS SCABS ON LEFT ARM. UP WITH 1 MIN ASSIST, HOLDING ONTO FURNITURE AND GB. FREQ. VISUAL CHECKS. CALL LIGHT WITHIN REACH. FALL PRECAUTIONS IN PLACE.
--- NOTE | 2019-09-28 15:39 | NUR ---
PRIOR TO ADMISSION TO ACUTE REHAB, PATIENT'S PREADMISSION FACILITY WAS CALLED AND LIAISON SPOKE WITH DIANA IN ADMINISTRATION. DIANA ASSURED THAT THEY WERE WILLING TO TAKE PATIENT BACK TO FACILITY. ONCE ADMITTED THEY WOULD BE WORKING TO HELP PATIENT FIND A DIFFERENT FACILITY THAT WOULD FIT HIS NEEDS/WISHES. THE PATIENT WOULD BE ABLE TO RECEIVE ASSISTANCE WITH SELFT CARE AND MOBILTIY. FACILTIY HAS ALARMS AND CALL LIGHTS TO ASSIST WITH PATIENT'S SAFETY.
[2019-09-28 20:20] VITALS: BP 114/75
--- NOTE | 2019-09-28 23:51 | NUR ---
ASSUMED CARE OF PT AT 1915. PT IS A&O TO SELF, PLACE, & SITUATION. DENIES PAIN. IS ON ROOM AIR. IS STABLE. IS UP WITH STANDBY ASSIST & GB. IS IMPULSIVE. IS ACROSS FROM NURSE STATION. FALL PRECAUTIONS & MORE FREQUENT ROUNDING THAN HUOURLY CONTINUED THIS SHIFT. PT IS CURRENTLY LYING IN BED. CALL LIGHT WITHIN REACH. IS NOT ASLEEP. LABS & VITALS REVIEWED. WILL CONTINUE TO MONITOR.
--- NOTE | 2019-09-29 01:09 | NUR ---
THIS NURSE ASKED TO ASSESS PT RIGHT HIP. PT POLITELY REFUSED. PT STATED, "I'VE LOOKED AT IT ALREADY. IT'S OKAY". THIS NURSE ASKED IF THE DRSG WAS INTACT & NON SOILED. PT STATED, "YES, IT IS". THERAPUTIC COMMUNICATION USED WITH PT. PT REFUSED TO ALLOW THIS NURSE TO ASSESS. PT HAS BEEN ASKING FOR COFFEE & SNACKS. HE SLEPT FOR APPROX 1 HOUR BETWEEN 2200 & 2300. PT HAS VOICED SEVERAL TIMES, "I WANT TO GO HOME". THERAPUETIC COMMUNICATION WAS USED WITH THE PT. HE IS CURRENLTY SITTING UP IN CHAIR WATCHING TV. ALARM ON. CALL LIGHT WITHIN REACH. WILL CONTINUE TO MONITOR.
--- NOTE | 2019-09-29 03:45 | NUR ---
PT CONTINUES TO BE IMPULSIVE. IS ABLE TO PUT THE RAILING DOWN ON THE BED. IS VERY IMPULSIVE. DOES NOT CALL FOR ASSISTANCE. PT WAS VERY AGITATED WITNESSED BY OTHER NOC NURSE & PHARMACY RETAIL SUPPORT SPECIALIST. PT WAS WAILING LOUDLY & CURSING. PT REPEATEDLY STATED, "I WISH YOU PEOPLE WOULD JUST LIVE ME ALONE" AND "I WANT TO GO HOME". PT WAS BEATING ON THE TABLE WITH HIS FIST LOUDLY REPEATEDLY. THIS NURSE USED THERAPUETIC COMMUNICATION WITH PT. INTERVENTIONS WERE GIVEN PER PROTOCOL. PT HAS SLEPT APPROX 1 HOUR LAST NIGHT. IS NOW SITTING IN RECLINER IN ROOM. ALARM IN PLACE. PT ALSO REPORTED HAVING A HEADACHE. INTERVENTIONS IMPLEMENTED PER PROTOCOL. PT IS ACROSS FROM NURSE'S STATION. WILL CONTINUE TO MONITOR CLOSELY. CALL LIGHT IS WITHIN REACH, ALTHOUGH IS NOT USING APPROPRIATELY.
[2019-09-29 07:21] LABS: HEMATOCRIT 32.4 % (42.0-52.0); HEMOGLOBIN 10.9 gm/dL (14.0-18.0); MCH 29.3 pg (26.0-34.0); MCHC 33.6 g/dL (28.0-37.0); MCV 87.1 fL (80.0-100.0); RBC 3.72 mil/uL (4.50-6.00); RDW 14.2 % (10.5-14.5); WBC 6.7 thou/uL (4.0-11.0)
[2019-09-29 07:52] LABS: CALCIUM 8.9 mg/dL (8.5-10.1); CREATININE 0.7 mg/dL (0.7-1.3); POTASSIUM 3.8 mmol/L (3.5-5.1)
--- NOTE | 2019-09-29 11:29 | NUR ---
ASSUMED CARE AT 0700. PATIENT IS ALERT AND ORIENTED TO PERSON , AND PLACE. PATIENT LUKE'S, DRIVE THRU ORDER TAKER ARE EQUAL. LUNGS ARE COARSE AND DEMINISHED. WITH A PRODUCTIVE COUGH. PATIENT IS SBA WITH GAIT BELT. PATIENT IS NONCOMPLIANT WITH ALARMS AND TRANSFERS AND USE OF THE BATHROOM. PATIENT HAS SCAB ON ARM. UP TO THE BATHROOM TO VOID LINA COLORED URINE. FALL AND SAFETY PROTOCOLS IN PLACE. NO C/O PAIN AT THIS TIME. CONTINUES TO PROGRESS SLOWLY TOWARDS D/C GOALS. PATIENT HAS DEMENTIA AND THINKS HE IS LEAVING TODAY. BAG WASHER HERE TO SEE PATIENT PATIENT WILL NOT LET THIS CRM BUSINESS ANALYST LOOK AT THE DRESSING TO HIS RIGHT HIP. " ITS OK, YOU DON'T NEED TO SEE IT. WILL CONTINUE TO MONITER.
--- NOTE | 2019-09-29 13:19 | NUR ---
THIS TERMITE TREATER COMPLETED INITIAL SPIRITUAL ASSESSMENT. IS A MARINE.
[2019-09-29 20:00] VITALS: BP 143/87
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
--- NOTE | 2019-09-30 04:24 | NUR ---
PATIENT UP TO BATHROOM USING ROLLER WALKER WITH STANDBY ASSIST. EVENING UNTIL 0100 PATINT WAS UP IN ROOM TRANSFERRING SELF FROM CHAIR TO BED AND BACK AT LEAST OFTEN EVERY TEN MINUTES. SEROQUEL GIVEN AND REST ENCOURAGED, HAD ALREADY GIVEN HIM PRN ZYPREXA AND PAIN MED. HAS SLEPT FOR 90 MINUTES BUT IS NOW UP AGAIN, SITTING SAFELY ENCOURAGED WITH NO COOPERATION AT THIS TIME, SITTING ON ROLLER WALKER WITH CONSTANT OBSERVATION FOR NOW
[2019-09-30 08:00] VITALS: BP 137/54
--- NOTE | 2019-09-30 17:46 | NUR ---
ASSUMED CARE OT 0700, PT A&O X 3 IMPULSIVE AND RESTLESS AT TIMES. NO ACUTE DISTRESS DURING SHIFT. VSS O2 ON RA. PT C/O PAIN AND RECEIVED PRN NORCO AND TYLENOL WITH ADEQUATE RELIEF. PT PARTICIPATED IN SC THERAPIES, NO COMBATIVE BEHAVIOR, A LITTLE AGITED AT TIMES BUT MILD AND NOT REQUIRING MEDICATION. PT ALSO MOVES FROM BED TO CHAIR AND WHEELCHAIR/WALKER VERY OFTEN. ATE 100%OF ALL MEALS. SITTING IN WHEELCHAIR, CALL LIGHT WITHIN REACH, WILL CONTINUE TO MONITOR PER POC.
[2019-09-30 19:40] VITALS: BP 126/62
--- NOTE | 2019-10-01 00:43 | NUR ---
TOOK OVER PT CARE AT 1900. ASSESSMENT DONE AND VSS. MEDS GIVEN AND WELL TOLERATED. PT CRIED TWICE EARLY IN THE EVENING BEFORE MEDS TOOK EFFECT. PT RESTLESS, MOVING FROM WHEELCHAIR TO BED TO USING THE BATHROOM, ETC. ASKING FOR SNACKS FREQUENTLY. SNACKS GIVEN. FINALLY LAID DOWN AT 2245 AND SLEEPING STILL. HOURLY ROUNDING. CALL LIGHT IN REACH. WILL CONTINUE TO MONITOR.
[2019-10-01 07:45] VITALS: BP 105/68
--- NOTE | 2019-10-01 16:34 | NUR ---
ASSUMED CARE AT 0700, PT A&O TO PERSON, IMPULSIVE AND AGITATED AT TIMES. VSS, O2 ON RA. PT C/O R HIP PAIN RELIEVED WITH PRN NORCO. TOLERATED MEDS WHOLE WITH WATER. PT CONTINUES TO BE RESTLESS, MOVING FROM BED TO CHAIR/RECLINER/WHEELCHAIR ON IMPULSIVE. ENCOURAGED PT NOT TO USE NAME CALLING OR DEROGATORY LANGUAGE WHEN ADDRESSING STAFF. SITTING IN CHAIR, CALL LIGHT WITHIN REACH, WILL CONTINUE TO MONITOR PER POC.
[2019-10-01 19:16] VITALS: BP 119/65
--- NOTE | 2019-10-02 02:46 | NUR ---
PATIENT PACING IN ROOM NOT ALLOWING CONTACT GUARD ASSIST. GETTING UP TO TOILET WITH SLIGHT LIMP TO HIS GAIT. MOVING FROM BED TO CHAIR TO WHEEL CHAIR INDEPENDENTLY IN THIS MANNER UNTIL 2299, THEN SLEPT ON RIGHT SIDE IN BED UNTIL 214, HAS BEEN AWAKE SINCE THEN WITH COMPLAINTS OF PAIN, OF BEING IN THE HOSPITAL, OF NOT HAVING A CIGARETTE AND THAT IS WHY HE IS COUGHING SO MUCH. PAIN MED BY REQUEST FOR HIP PAIN, STATES HE IS NO LONGER HAVING A HEADACHE LIKE HE WAS AT .
[2019-10-02 07:40] VITALS: BP 131/69
[2019-10-02 08:00] VITALS: BP 131/69
--- NOTE | 2019-10-02 10:14 | NUR ---
WOUND CARE NOTE ASSESSED BUTTOCKS/SACRAL AREA W/ MACY RODNEY, OPEN WOUND COCCYX AREA ~3CM X 2.5CM, UNKNOWN ETILOGY? SHEARING? SCANT DRAINAGE, NO S/S INFECTION, PT ALERT, COOPERATIVE W/ ASSESSMENT AT THIS TIME RECOMMENDATIONS; ZGUARD BID AND PRN, LOW AIR LOSS PUMP TO BED DATA CENTER OPERATOR INFORMED
--- NOTE | 2019-10-02 10:56 | NUR ---
WOUND CONSULT; THE RIGHT HIP SURGICAL INSCISION WAS NOT ASSESSED. WE WERE CONSULTED ONLY FOR THE COCCYX WOUND. PLEASE GET ODERS FROM THE PCP FOR THE HIP INSCISION OR RECONSULT WOUND CARE.
--- NOTE | 2019-10-02 12:50 | NUR ---
ASSUMED CARE AT 0700. NIGHT RN SAID PT HAS BEEN UP AT NIGHT JUST RESTED COUPLE HOURS. PT UP IN WC AT THE BEGINNING OF THE SHIFT. REFUSES TO HAS CHAIR OR BED ALARM. REINFORCE PT THAT STAFF WANTS TO KEEP HIM SAFE. PT HAS BEEN CLOSED OBSERVATION AND NEAR NURSE STATION. PATIENT IS ALERT AND ORIENTED TO PERSON , AND PLACE. REASSESSMENT PER CHART. LUNGS ARE COARSE AND DEMINISHED WITH A PRODUCTIVE COUGH. CONTINUE TO BE ON MUCINEX. NEW WOUND FOUND ON COCCYX. WOUND CARE CONSULT. LOW AIR LOSS MATRESS ORDERED. ENCOURAGED PT TO LAY ON THE SIDE. ZGUARD APPLIED. INCISION ON RIGHT HIP INTACT. CLEANSE AND APPLIED NEW GUAZE AND TAPE. PATIENT IS SBA WITH GAIT BELT. PATIENT IS NONCOMPLIANT WITH ALARMS AND TRANSFERS AND USE OF THE BATHROOM. HOWEVER HE HAS BEEN WORKING WELL WITH THIS PREPRESS TECHNICIAN. PATIENT HAS SCAB ON ARM. BACTROPAN OINTMENT APPLIED ORDERED. C/O HEADACHE 6/10 AND RIGHT HIP PAIN 6/10 THIS AM. PRN TYLENOL GIVEN. PAIN DOWN TO 3/10. C/O INDIGESTION. NOTIFIED EVANGELINA AND OBTAINED ORDER FOR PRN TUMB FOR INDIGESTION. PT REFUSES PAIN AT THIS MOMENT. UP TO THE BATHROOM TO VOID LINA COLORED URINE. REPORTS HAD 2X BM YESTERDAY.FALL AND SAFETY PROTOCOLS IN PLACE. CALL LIGHT WITHIN REACH. UP AND PARTICIPATES WITH THERAPY.CONTINUES TO PROGRESS SLOWLY TOWARDS D/C GOALS. WILL CONTINUE TO MONITOR.
[2019-10-02 19:50] VITALS: BP 138/70
--- NOTE | 2019-10-03 01:47 | NUR ---
PT ALERT AND ORIENTED X 1. VERY IMPULSIVE SETTING OFF CHAIR AND BED ALARMS FREQUENTLY. CONSTANTLY ASKING FOR FOOD AND DRINKS. RIGHT HIP DRESSING C/D/I. C/O HEADACHE AND PAIN IN RIGHT HIP. HYDROCODONE GIVEN X 1. ZYPREXA GIVEN AT HS SINCE PT AGITATED AT TIMES. BED AND CHAIR ALARMS IN USE. PT EASILY VISIBLE FROM NURSES STATION. PT NAPS FOR SHORT PERIODS. PT CHECKED ON MORE FREQUENTLY THAN HOURLY ROUNDS.
[2019-10-03 08:00] VITALS: BP 138/82
--- NOTE | 2019-10-03 09:57 | NUR ---
WOUND CARE F/U ASSESSED WOUNDS W/ METAL WIRE TECHNICIAN DON, PT ALERT, COOPERATIVE, STAGE 2 PRESSURE INJURY COCCYX, HEALING, SCANT DRAINAGE, R HIP SURGICAL INCISION INTACT, WELL APPROXIMATED W/ OMAR, NO DRAINAGE, NO S/S INFECTION, HEALING, METAL WIRE TECHNICIAN APPLYING [facility] DAILY AND PRN RECOMMENDATIONS CONT CURRENT POC ZGUARD TO COCCYX AREA, ENCOURAGED PT TO NOT SIT FOR LONG PERIODS, CONT LOW AIR LOSS PUMP TO BED, R HIP WOUND CARE ORDERED PER ORTHO DR METAL WIRE TECHNICIAN AWARE
--- NOTE | 2019-10-03 11:40 | NUR ---
ASSUMED CARE AT 0700. PATIENT IS ALERT AND ORIENTED X1. PATIENT IS CONFUSED AND HAS HX OF DEMENTIA AND PSYCHOPHRENIA. 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 LUNGS ARE COARSE AND DEMINISHED WITH AN OCASIONAL COUGH. PATIENT C/O SORE THROAT. SECURITY VEHICLE PATROL OFFICER NOTIFED. ABD IS SOFT AND ROUNDED. PATIENT HASN'T HAD BM SINCE 09/30, BUT DID RECIEVE LAXATIVES TODAY. RIGH HIP DRESSING CHANGED. WOUND CARE NURSE APPLIED Z-GUARD TO HIS BOTTOM. PATIENT IS NON-COMPLIANT WITH HIS RESTRICTIONS. PATIENT IS UP WITH WALKER IN ADAM WITH P.T. FALL AND SAFETY PROTOCOLS IN PLACE. NO C/O PAIN AT THIS TIME. CONTINUES TO PROGRESS TOWARDS D/C GOALS. WILL CONTINUE TO MONITER.
--- NOTE | 2019-10-03 12:51 | NUR ---
team meeting, recommendation: dc 17th, with walker, cont hip precaution. follow up outpt with ortho and get stables removed as well. he need sockaid and market maker. vendor form completed and bedside nurse to deliver to pt. will cont following as needed for dc needs.
--- NOTE | 2019-10-03 17:02 | NUR ---
FAXED CLINICAL UPDATE TO [facility] RECEIVED CONFIRMATION. PT TO DC BACK TO FACILITY 10/05.
[2019-10-03 19:05] VITALS: BP 132/80
--- NOTE | 2019-10-03 23:45 | NUR ---
TOOK OVER PT CARE AT 1900. ASSESSMENT DONE AND VSS. PT NON-COMPLIANT WITH ALARMS/DOESN'T ASK FOR HELP TO TRANSFER SELF. RESTLESS AND IN/OUT OF BED MULTIPLE TIMES. ASKS FOR FOOD AND DRINKS CONSTANTLY. CALLED HERE TO CHECK ON HIM AND SEE IF THE NEW SLEEP MED WAS HELPING. MEDS GIVEN AND WELL TOLERATED. HOURLY ROUNDING. CALL LIGHT IN REACH. WILL CONTINUE TO MONITOR.
[2019-10-04 07:50] VITALS: BP 128/66
--- NOTE | 2019-10-04 11:14 | NUR ---
WOUND CARE F/U ASSESS COCCYX WOUND W/ MAHSA RN, PT COOPERATIVE, ULCER HEALING, DRY SKIN PRESENT, SOME REMOVED W/ CLEANSING SHOWING PINK GRANULATING TISSUE UNDERNEATH, NO S/S INFECTION, PHOTO TAKEN RECOMMENDATIONS CONT CURRENT POC, ENCOURAGED PT TO NOT SIT FOR LONG PERIODS, CONT LOW AIR LOSS PUMP, TURN Q 2HOURS WHEN IN BED SPREADER AWARE
--- NOTE | 2019-10-04 12:19 | PLAN ---
[facility] [place] [address] REHAB UNIT PLAN OF CARE Name: MARY MELO Room #: 514-P ADM IN M.R.#: [id number] Admission: 09/28/19 Attend Phys: New Mena MD Discharge: Date of : 56 Report #: [id number] THIS REPORT FOR: //name// CC: New Mena [employer] physician/PCP DATE OF SERVICE: 09/29/2019 PROGRESS NOTE AND OVERALL PLAN OF CARE HISTORY OF PRESENT ILLNESS: The patient is seen back today in followup. He is alert, pleasant, in no distress. Temperature 37.3, pulse 97, respirations 16, and blood pressure 114/75. He has been working in therapies and has been cooperative. He was seen in physical therapy today. Transfers are min assist sit to stand. Gait, min assist 175 feet front-wheeled walker. He has started to work on stairs. He is allowed weightbearing as tolerated. We are continuing to encourage him regarding hip precautions and is noted to be adherent to hip precautions by the therapy staff. In occupational therapy, he is mod assist for lower body dressing. Speech therapy is working on swallowing and he is on a mechanical soft all liquids. ASSESSMENT: 1. Fall with right femur fracture, status post hemiarthroplasty 09/23/2019, weightbearing as tolerated. 2. Bronchitis versus aspiration. 3. Dementia with aggressive behaviors. 4. Schizophrenia. 5. Diabetes mellitus type 2. 6. Hypertension. 7. Hyperlipidemia. PLAN: The overall plan of care is based on the preadmission screen, post-admission physician evaluation and information garnered from therapy assessments. 1. Estimated length of stay is probably 7-10 days. 2. Medical prognosis is reasonably good. 3. Anticipated interventions include the interdisciplinary acute inpatient rehabilitation program. 4. Anticipated functional outcomes would be for the patient to be modified independent at least at the walker level with mobility, ADLs as well as improved swallowing, so that he can return back to the home setting. 5. Discharge destination would be back to his residential care facility. 6. Expected therapy by discipline includes PT, OT and speech 1 [place] [address] REHAB UNIT PLAN OF CARE Name: MARY MELO Room #: 514-P [facility] IN ..#: [id number] Admission: 09/28/19 Attend Phys: New Mena MD Discharge: Date of : 56 Report #: [id number] each five days a week throughout the duration of the acute inpatient rehabilitation stay. <ELECTRONICALLY SIGNED> By: New Mena MD 10/04/19 1219 1139 1319 New Mena MD /nt
--- NOTE | 2019-10-04 12:19 | H ---
[facility] [place] [address] HISTORY AND PHYSICAL Name: MARY MELO Room #: 514-P ADM IN M.R.#: [id number] Admission: 09/28/19 Attend Phys: New Mena MD Discharge: Date of : 56 Report #: [id number] THIS REPORT FOR: cc: LAURIE - Hina family physician/PCP LAURIE - No family physician/PCP New Mena MD ~ CC: New SULLIVAN physician/PCP DATE OF SERVICE: 09/28/2019 POST-ADMISSION PHYSICIAN EVALUATION HISTORY OF PRESENT ILLNESS: The patient has been admitted for acute in-hospital inpatient rehabilitation. Please see the full admission history and physical documentation. I agree with documentation as noted. From post-admission physician evaluation perspective, there are no relevant changes since the preadmission screening. Please see the above review of prior and current medical and functional conditions and comorbidities. Please see the patient's previous and current functional status. As far as risk of complications, the patient has the above noted medical comorbidities. Initial plan of care involves the interdisciplinary acute inpatient rehabilitation stay to maximize his functional independence, so he can hopefully return back to his prior living situation. Prognosis is reasonably good with estimated length of stay probably 7-10 days. Potential barriers would include his above noted comorbidities and decreased functional status. I have been in contact with Dr. Caban from Psychiatry and appreciate Dr. Henderson's consultation from Infectious Disease. I have also discussed the case with Dr. Nuñez. The patient has been cleared for admission for acute in-hospital inpatient rehabilitation. Goal is to have him be ambulatory at least at a walker level, so that he can return back to his residential care facility. The patient has been cooperative with the therapist and has been admitted for the interdisciplinary acute inpatient rehab. <ELECTRONICALLY SIGNED> By: New Mena MD 10/04/19 1219 1134 1221 New Mena MD /nt
--- NOTE | 2019-10-04 18:11 | NUR ---
ASSUMED CARE AT 0700, PT A&O TO PERSON, NO ACUTE DISTRESS DURING SHIFT. VSS, O2 ON RA. PT C/O R HIP PAIN AND RECEIVED PRN TYLENOL WITH SOME RELIEF. PT IMPULSIVE AND INAPPROPRIATE AT TIMES, REDIRECTED NEEDED. PARTICIPATED IN KEN THERAPIES. TOLERATES MEDS WHOLE IN APPLESAUCE. CONTINENT OF B&B, NO BM TODAY. LAST ON 10/03/19. SITTING IN WHEELCHAIR, CALL LIGHT WITHIN REACH, WILL CONTINUE TO MONITOR PER POC.
[2019-10-04 19:30] VITALS: BP 121/77
--- NOTE | 2019-10-05 00:56 | NUR ---
PT ASSESSMENT COMPLETED AND VSS. MEDS GIVEN ORDERED AND WELL TOLERATED. PT YELLING SEVERAL TIMES WAKING PATIENTS. HE CALLED FOR COFFEE/SNACKS. OR THAT HE WANTED TO GET UP OR WANTED TO GO TO BED. GAVE PT PRN SLEEP MEDICATION. WORKING WELL AT THIS TIME. ASST WITH FREQUENT REPOSITION FOR COMFORT. SWALLOW PRECAUTIONS FOLLOWED. WILL CONTINUE TO MONITOR FREQUENTLY. FALL PRECAUTIONS IN PLACE.
[2019-10-05 05:34] LABS: ABSOLUTE NEUTROPHILS 3.8 thou/uL (1.4-8.2); BASOPHILS 0.9 % (0.0-2.0); EOSINOPHILS 7.6 % (0.0-3.0); HEMATOCRIT 33.5 % (42.0-52.0); HEMOGLOBIN 11.2 gm/dL (14.0-18.0); LYMPHOCYTES 23.4 % (24.0-44.0); MCH 29.3 pg (26.0-34.0); MCHC 33.4 g/dL (28.0-37.0); MCV 87.5 fL (80.0-100.0); PLATELET COUNT 497 thou/uL (150-400); POLYS 58.1 % (36.0-66.0); RBC 3.83 mil/uL (4.50-6.00); RDW 14.9 % (10.5-14.5); WBC 6.5 thou/uL (4.0-11.0)
[2019-10-05 05:58] LABS: CALCIUM 8.3 mg/dL (8.5-10.1); CREATININE 0.7 mg/dL (0.7-1.3); MAGNESIUM 2.2 mg/dL (1.8-2.4); POTASSIUM 4.2 mmol/L (3.5-5.1)
--- NOTE | 2019-10-05 07:51 | NUR ---
THIS MORNING PT WAS VERY AGITATED AND TOSSED HIS WALKER AT NIGHT NURSE ERIC. HE WAS YELLING AND THROWING THINGS IN THE ROOM. ORDERED IM LORAZAPAM. WHEN DOSE ARRIVED PT HAD ALREADY CALMED DOWN AND WAS WILLING TO DO THERAPY. HELD DOSE AND PLACED IN MED LOCK DRQWER. PT DID NOT SLEEP WELL. INFORMED DAY RN.
[2019-10-05 08:00] VITALS: BP 134/70
--- NOTE | 2019-10-05 10:04 | EKG ---
[facility] [place] [address] ELECTROCARDIOGRAM REPORT Name: MARY MELO Room #: 514-P ADM IN M.R.#: [id number] Admission: 09/28/19 Attend Phys: New Mena MD Discharge: Date of : 56 Report #: [id number] THIS REPORT FOR: cc: FAM - No family physician/PCP FAM - No family physician/PCP Milind Freire MD [facility] THIS REPORT FOR: //name// [facility] Test Date: 2019-10-05 Test Time: 09:23:32 Pat Name: MARY MELO Department: Room: 514 P Gender: M Machine Heel Builder: Jackie PORTILLO : 1960 Requested By: Radha Cotton Order Number: [id number] MD: Milind Freire Measurements Intervals [place] Rate: 113 P: 81 WI: 148 QRS: 67 QRSD: 78 T: 73 QT: 299 QTc: 410 Interpretive Statements Sinus tachycardia Otherwise no significant abnormality No previous ECG available for comparison Electronically Signed On 10-05-2019 10:02:43 CDT by Milind Freire [email or web address] <ELECTRONICALLY SIGNED> By: Milind Freire MD, [facility] 10/05/19 1002 2 Milind Freire MD, [facility] /EPI
--- NOTE | 2019-10-05 10:44 | NUR ---
CHART COPY REQUESTED FOR DICK TO DC BACK TO [facility] TOMORROW AM.
--- NOTE | 2019-10-05 11:28 | NUR ---
Nutrition: Pt admitted to rehab unit dx femoral neck fx, dementia with behaviors. Transferred from [facility] unit. 160# suspected inaccurate. Prior recent weights 140-148#. Pt eats well 75-100% of meals/snacks. Speech therapy following for modified diet/swallow precaution needs. Hx DM but BG well controlled. On metformin. Stage 2 healing coccyx ulcer charted, reviewed protein needs and pt states he eats 100% of protein foods. Magic cup is ordered at lunch-pt dislikes-will D/C. No other supplements desired at this time. Follow weight trends for accuracy. Low nutrition risk.
[2019-10-05 14:07] VITALS: BP 134/70
--- NOTE | 2019-10-05 14:13 | NUR ---
cm spoke with janna with [facility] PRISON level 2, pt will need to be dc back with mask on. chart copy delviered to 5n to be sent with him. bedside nurse to call report to [phone] and fax dc orders to [phone]. [facility] wheel chair van set up for 1030, # [phone]
--- NOTE | 2019-10-05 17:06 | NUR ---
ASSUMED CARE AT 0700, A&O TO PERSON. PT WAS VERY AGITATED THIS MORNING, THROWING STUFF ON THE FLOOR, THREATENING STAFF AND CURSING. PT HAD ELEVATED HR IN THE 120'S. MD NOTIFIED, STAT EKG ORDERED, OK GIVEN TO ADMINISTER 1MG OF ATIVAN IM. MD ALSO ASSESSED PT AT BEDSIDE. PT EVENTUALLY CALMED DOWN AND PARTICIPATED IN THERAPY. PT HAD CXR AND KUB, MODERATE CONSTIPATION NOTED, ORDER GIVEN FOR KEN MIRALAX AND MAG CITRATE PRN. PLANS FOR D/C TOMORROW. PT SITTING IN CHAIR, CALL LIGHT WITHIN REACH, WILL CONTINUE TO MONITOR PER POC.
--- NOTE | 2019-10-05 19:57 | NUR ---
OMAR TO R HIP TO BE REMOVED ON WEDNESDAY, PER DR. NIEVES
[2019-10-05 21:00] VITALS: BP 138/74
--- NOTE | 2019-10-06 00:43 | NUR ---
TOOK OVER PT CARE AT 1900. ASSESSMENT DONE AND VSS. MEDS/EYE DROPS GIVEN AND WELL TOLERATED. FALL PRECAUTIONS IN PLACE. PT UP/DOWN/IN/OUT OF BED, NIK BRYSON. ASKING FOR FOOD AND DRINKS STATING "I'M HUNGRY". FOOD AND DRINKS PROVIDED. HOURLY ROUNDING. CALL LIGHT IN REACH. WILL CONTINUE TO MONITOR.
[2019-10-06 07:30] VITALS: BP 143/92
--- NOTE | 2019-10-06 07:55 | NUR ---
RECEIVED A REPORT FROM NIGHT RN THAT PT WILL D/C TO [facility] TODAY. PT HAS RIGHT HIP FX AND SURGERY WAS ON 09/23/19. NOTICED A MESSAGE FROM TJ TO CALL DR. NIEVES TO NOTIFIED THAT PT WILL BE DISCHARGE TODAY IF DOCTOR WANTS OMAR TO REMOVE AND FOLLOW UP APPOINTMENT. HIS NURSE CALLED BACK AND GAVE T.O TO REMOVE OMAR TODAY AND FOLLOW UP APPOINTMENT WITHIN 1-2 WEEKS. PT HAS BEEN UP AND ANXIOUS. REQUESTS TO NACKS. UP MOST OF THE NIGHT. OFFERED SUPPORTIVE CARE AND ATTEND TO HIS NEEDS. FALL PRECAUTION IN PLACE. PT NOT COMPLIANCE, PT IS ON CLOSE OBSERVATION, AND NEAR NURSE STATION. WILL CONTINUE TO MONITOR.
[2019-10-06] MEDS ORDERED: ULTRAM 50MG TAB50 MG PO (09:01)
[2019-10-06] MEDS ORDERED: TYLENOL325 MG PO (09:04)
[2019-10-06] MEDS ORDERED: MUCINEX600 MG PO (09:04)
[2019-10-06] MEDS ORDERED: DOXYCYCLINE HYC50 MG PO (09:04)
[2019-10-06] MEDS ORDERED: LISINOPRIL2.5 MG PO (09:04)
[2019-10-06] MEDS ORDERED: LITE COAT ASPI325 MG PO (09:04)
[2019-10-06] MEDS ORDERED: PEPCID20 MG PO (09:04)
[2019-10-06] MEDS ORDERED: MIRALAX17 GM PO (09:04)
[2019-10-06] MEDS ORDERED: REMERON 30 MG T30 M1 PO (09:04)
[2019-10-06 09:21] VITALS: BP 143/92
--- NOTE | 2019-10-06 15:10 | NUR ---
PLASTICS FACTORY WORKER CALLED [facility] AND COMMUNICATED DIET RECOMMENDATIONS AND SAFEST METHOD OF PILL CONSUMPTION TO THE PATIENT'S NURSE.
== END 2019-10-06 11:15 | DRG 534 ==
PROVIDERS: Nurse Practitioner; Nurse Practitioner Family; ADMIT Physical Medicine & Rehabilitation
DX: S72.91XA Unspecified fracture of right femur, initial encounter for closed fracture (principal); F03.91 Unspecified dementia, unspecified severity, with behavioral disturbance; W18.39XA Other fall on same level, initial encounter; Y93.89 Activity, other specified; Y92.89 Other specified places as the place of occurrence of the external cause; Y99.8 Other external cause status; F20.9 Schizophrenia, unspecified; I10 Essential (primary) hypertension; E78.5 Hyperlipidemia, unspecified; E11.9 Type 2 diabetes mellitus without complications; G43.909 Migraine, unspecified, not intractable, without status migrainosus; F01.50 Vascular dementia, unspecified severity, without behavioral disturbance, psychotic disturbance, mood disturbance, and anxiety; G47.00 Insomnia, unspecified; N40.0 Benign prostatic hyperplasia without lower urinary tract symptoms; J40 Bronchitis, not specified as acute or chronic; Z79.899 Other long term (current) drug therapy; J44.9 Chronic obstructive pulmonary disease, unspecified
CPT/HCPCS: 10112